=== PATIENT | male | born 1955 | race Caucasian/White ===

== ENCOUNTER 2018-06-08 08:08 | Day surgery (SDC) | payer OTHER ==
[2018-06-04 15:54] VITALS: BMI 26.6
[~2018-06-08 08:08] MED LIST: LACTATED RINGERS 1,000 ML IV SCH; LIDOCAINE 1% 20 ML VIAL (10MG/ML) FOR IV START INTRADERMA PRN
[2018-06-08 09:19] VITALS: RESP 16; TEMP 97
[2018-06-08] MEDS ORDERED: PROPOFOL 10 MG/ML 20 ML VIAL IV ONE (09:42)
[2018-06-08] MEDS ORDERED: LIDOCAINE 1% INJ 10MG/ML (20 ML MDV) ONE (09:42)
--- NOTE | 2018-06-08 10:20 | P.PCN ---
Date of Procedure: 06/08/18 Procedure(s) Performed: Procedure: Total colonoscopy. Preoperative diagnosis: Screening for neoplasia. Postoperative diagnosis: Exam within normal limits. Preparation: HalfLytely prep. Sedation: Was provided by anesthesia. Brief clinical history: The patient is a 62-year-old male who is scheduled for this evaluation for screening for neoplasia because of history of polyps and age as a risk factor. His last exam was in 2011. The patient has no abdominal complaints, bleeding or anemia. Procedure: With the patient on his left lateral decubitus position and after informed consent and adequate sedation, the perianal area was inspected and it did not show any fissures or fistulas. There were no masses felt on digital rectal examination. The Olympus CFQ 160L video colonoscope was then inserted in the rectum in the usual fashion and advanced to the cecum. The mucosa appeared healthy. No polyps or tumors were seen or any obvious diverticular disease or other pathology. I retroflexed the endoscope in the rectum before the endoscope was withdrawn. The patient tolerated the procedure well. Plan: The patient was reassured. He will follow up with you as planned and with his history of polyps, I recommended repeat exam in 5 years.
[2018-06-08 10:29] VITALS: BP 110/70; PULSE 68
== END 2018-06-08 11:01 | disposition home or self-care (01) ==
LOC: ORWHC2ENDO 08:08
DX: Z12.11 Encounter for screening for malignant neoplasm of colon (principal); Z87.19 Personal history of other diseases of the digestive system
CPT/HCPCS: J2001; J2704; G0121

== ENCOUNTER → 2018-08-19 | Outpatient (CLI) | payer OTHER ==
[2018-08-19 09:13] LABS: Basophils # (A) 0.1 k/uL (0-0.2); Basophils % (A) 1 %; Eosinophils # (A) 0.3 k/uL (0-0.7); Eosinophils % (A) 6 %; HCT 47.4 % (39.0-53.0); Lymphocytes # (A) 1.1 k/uL (1.0-4.8); Lymphocytes % (A) 23 %; MCH 29.5 pg (25.0-35.0); MCHC 33.8 g/dL (31.0-37.0); MCV 87.4 fL (80.0-100.0); Mean Platelet Volume 6.3; Monocytes # (A) 0.3 k/uL (0-1.0); Monocytes % (A) 6 %; Neutrophils # (A) 2.8 k/uL (1.3-7.7); Neutrophils % (A) 62 %; Platelet Count 172 k/uL (150-450); RBC 5.43 m/uL (4.30-5.90); RDW 12.7 % (11.5-15.5); WBC 4.6 k/uL (3.8-10.6)
[2018-08-19 16:29] LABS: Albumin 4.3 g/dL (3.80-4.90); Albumin/Globulin Ratio 2.26 (1.20-2.10); Anion Gap 7.4 mmol/L (4.00-12.00); Carbon Dioxide 25.6 mmol/L (21.6-31.8); Globulin 1.9 g/dL (1.6-3.3); LDL Cholesterol,Calculated 107.4 mg/dL (0.0-131.0); Total Bilirubin 0.4 mg/dL (0.2-1.2); Total Protein 6.2 g/dL (6.2-8.2); VLDL Calculation 29.6 mg/dL (5.00-40.00)
== END ==
LOC: LABWHC1 08:48
PROVIDERS: ATTEND Internal Medicine Critical Care Medicine
DX: Z00.00 Encounter for general adult medical examination without abnormal findings (principal)
CPT/HCPCS: 36415; 80053; 80061; 84153; 84439; 84443; 85025

== ENCOUNTER → 2021-06-30 | Outpatient (CLI) | payer MEDICARE ==
[2021-06-30 09:20] LABS: Appearance,Urine Clear (Clear); Bilirubin,Urine Negative (Negative); Blood,Urine Negative (Negative); Color,Urine Yellow; Glucose,Urine (UA) Negative (Negative); Ketones,Urine Negative (Negative); Leukocyte Esterase,Urine Negative (Negative); Nitrite,Urine Negative (Negative); PH, Urine 6.5 (5.0-8.0); Protein,Urine Negative (Negative); Specific Gravity,Urine 1.017 (1.001-1.035); Urobilinogen,Urine <2.0 mg/dL (<2.0)
[2021-06-30 11:47] LABS: Basophils # (A) 0.05 X 10*3/uL (0.00-0.10); Basophils % (A) 0.7 %; Eosinophils # (A) 0.25 X 10*3/uL (0.04-0.35); Eosinophils % (A) 3.4 %; HCT 48.8 % (39.6-50.0); HGB 16.3 g/dL (13.0-17.0); Lymphocytes # (A) 1.25 X 10*3/uL (0.90-5.00); Lymphocytes % (A) 16.9 %; MCH 29.5 pg (27.0-32.0); MCHC 33.4 g/dL (32.0-37.0); MCV 88.2 fL (80.0-97.0); Monocytes # (A) 0.61 X 10*3/uL (0.20-1.00); Monocytes % (A) 8.3 %; Neutrophils # (A) 5.21 X 10*3/uL (1.80-7.70); Neutrophils % (A) 70.6 %; Platelet Count 201 X 10*3/uL (140-440); RBC 5.53 X 10*6/uL (4.40-5.60); RDW 12.8 % (11.5-14.5); WBC 7.38 X 10*3/uL (4.50-10.00)
[2021-06-30 13:34] LABS: African American GFR (CKD) 73.1 (60.0-200.0); Albumin 4.6 g/dL (3.8-4.9); Albumin/Globulin Ratio 1.92 (1.60-3.17); Anion Gap 12.3 mmol/L (4.00-12.00); BUN/Creat Ratio 11.33 Ratio (12.00-20.00); Blood Urea Nitrogen 13.6 mg/dL (9.0-27.0); Calcium 9.4 mg/dL (8.7-10.3); Carbon Dioxide 24.7 mmol/L (21.6-31.8); Chol/HDL Ratio 3.89 Ratio; Globulin 2.4 g/dL (1.6-3.3); HDL Cholesterol 50.7 mg/dL (40.00-60.00); LDL Cholesterol,Calculated 121.9 mg/dL (0.0-131.0); Non-African American GFR(CKD) 63.1 (60.0-200.0); Potassium 4.8 mmol/L (3.5-5.5); T4, Free (Free Thyroxine) 1.01 ng/dL (0.800-1.800); Total Bilirubin 0.5 mg/dL (0.30-1.20); VLDL Calculation 24.4 mg/dL (5.00-40.00)
== END | disposition home or self-care (01) ==
LOC: LABWHC1 08:32
PROVIDERS: ATTEND Internal Medicine Critical Care Medicine
DX: Z00.00 Encounter for general adult medical examination without abnormal findings (principal)
CPT/HCPCS: 36415; 80053; 80061; 81003; 84439; 84443; 85025

== ENCOUNTER → 2022-04-06 | Outpatient (CLI) | payer MEDICARE | END | disposition home or self-care (01) | LOC: LABWHC1 08:05 | PROVIDERS: ATTEND Internal Medicine Critical Care Medicine | DX: I10 Essential (primary) hypertension (principal) | CPT/HCPCS: 36415; 83721 ==

== ENCOUNTER → 2022-05-03 | Outpatient (CLI) | payer MEDICARE ==
--- NOTE | 2022-05-03 08:14 | US ---
EXAMINATION TYPE: US abdomen comp/pelvis limited DATE OF EXAM: 05/03/2022 COMPARISON: NONE CLINICAL HISTORY: K40.90 INGUINAL HERNIA. Right groin pain EXAM MEASUREMENTS: Liver Length: 18.6 cm Gallbladder Wall: 0.1 cm CBD: 0.5 cm Spleen: 11.1 cm Right Kidney: 10.7 x 5.4 x 4.4 cm Left Kidney: 11.8 x 5.1 x 4.8 cm Pancreas: Obscured by bowel gas Liver: Heterogeneous, cysts within left lobe- largest= 2.2 x 1.3 x 2.2 cm Gallbladder: wnl CBD: wnl Spleen: wnl Right Kidney: wnl Left Kidney: Multiple parapelvic cysts, largest= 3.1 x 1.3 x 2.2 cm Upper IVC: wnl Abd Aorta: Proximal and mid portions obscured by overlying bowel gas/ distal portion appeared wnl Bladder: Small bladder diverticula visualized Bilateral Jets Seen Yes Please note Right groin scanned in area of pt's pain for possible inguinal hernia- multiple images taken with valsalva maneuver- no ultrasound evidence of inguinal hernia IMPRESSION: 1. Hepatic heterogeneity may reflect underlying hepatic steatosis. 2. Hepatic cyst as noted above. 3. Multiple parapelvic cysts noted.
== END | disposition home or self-care (01) ==
LOC: RADUSWWP 07:02
PROVIDERS: ATTEND Family Medicine
DX: K76.89 Other specified diseases of liver (principal); R19.07 Generalized intra-abdominal and pelvic swelling, mass and lump
CPT/HCPCS: 76700; 76857

== ENCOUNTER → 2022-08-24 | Outpatient (CLI) | payer MEDICARE ==
[2022-08-24 17:19] LABS: Basophils # (A) 0.07 X 10*3/uL (0.00-0.10); Basophils % (A) 1.2 %; Eosinophils % (A) 5.1 %; HCT 42.2 % (39.6-50.0); HGB 14.9 g/dL (13.0-17.0); Immature Grans, Automated 0.3 %; Lymphocytes # (A) 1.38 X 10*3/uL (0.90-5.00); Lymphocytes % (A) 23.3 %; MCH 30.5 pg (27.0-32.0); MCHC 35.3 g/dL (32.0-37.0); MCV 86.3 fL (80.0-97.0); Mean Platelet Volume 9.8 fL (9.5-12.2); Monocytes # (A) 0.45 X 10*3/uL (0.20-1.00); Monocytes % (A) 7.6 %; NRBC Per 100 WBC 0 /100 WBCS (0.0-0.0); Neutrophils # (A) 3.71 X 10*3/uL (1.80-7.70); Neutrophils % (A) 62.5 %; Platelet Count 207 X 10*3/uL (140-440); RBC 4.89 X 10*6/uL (4.40-5.60); RDW 12.4 % (11.5-14.5); WBC 5.93 X 10*3/uL (4.50-10.00)
== END | disposition home or self-care (01) ==
LOC: LABPAT 08:57
PROVIDERS: ATTEND Surgery
DX: Z01.812 Encounter for preprocedural laboratory examination (principal); K40.90 Unilateral inguinal hernia, without obstruction or gangrene, not specified as recurrent
CPT/HCPCS: 85025; 93005

== ENCOUNTER 2022-08-30 08:40 | Day surgery (SDC) | payer MEDICARE, OTHER ==
[2022-08-27 11:30] VITALS: BMI 26.6
--- NOTE | 2022-08-30 07:35 | P.GSHP ---
History of Present Illness H&P Date: 08/30/22 Chief Complaint: Right inguinal hernia 66-year-old male here today for repair right inguinal hernia. Patient with complaints of bulging right groin with mild pain for the last 6 months or so. Increasing in size. No history of prior hernias. 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 Varicose veins, wears compression stockings. History of Any Multi-Drug Resistant Organisms: None Reported Additional Past Surgical History / Comment(s): Brain surgery to remove meningioma, colonoscopies with poylps removed X1. Past Anesthesia/Blood Transfusion Reactions: No Reported Reaction, Motion Sickness Past Psychological History: No Psychological Hx Reported Smoking Status: Former smoker Past Alcohol Use History: Occasional Additional Past Alcohol Use History / Comment(s): Smoked less than 1ppd in his 20's for approximately 10 yrs. Past Drug Use History: None Reported - Past Family History Father Family Medical History: Cancer Sister(s) Family Medical History: Cancer Additional Family Medical History / Comment(s): Breast cancer. Medications and Allergies Home Medications Medication Instructions Recorded Confirmed Type Lisinopril-Hctz 20-12.5 mg 1 tab PO QAM 06/04/18 08/27/22 History [Zestoretic 20-12.5] Magnesium (Unknown Dose) 1 tab PO HS 08/27/22 08/27/22 History Allergies Allergy/AdvReac Type Severity Reaction Status Date / Time No Known Allergies Allergy Verified 08/27/22 11:16 Surgical - Exam Physical exam: General: Well-developed, well-nourished HEENT: Normocephalic, sclerae nonicteric Abdomen: Nontender, nondistended, reducible right inguinal hernia Extremities: No edema Neuro: Alert and oriented Assessment and Plan (1) Right inguinal hernia Narrative/Plan: 66-year-old male with right inguinal hernia. We'll proceed with lap scopic da Brian assisted repair right inguinal hernia with mesh, possible open, possible bilateral. Risks of bleeding, infection, recurrence, bladder and bowel injury, numbness, nerve injury, conversion to an open procedure were discussed with the patient. The patient understands and wishes to proceed. Status: Acute Code(s): K40.90 - UNIL INGUINAL HERNIA, W/O OBST OR GANGR, NOT SPCF RECUR SNOMED Code(s): 811206375
[~2022-08-30 08:40] MED LIST changes: +ACETAMINOPHEN TAB 500 MG TAB PO PRN; +DEXAMETHASONE SOD PHOSPHATE 4 MG/ML 1 ML VIAL IV ONE; +HEPARIN SODIUM,PORCINE/PF 5,000 UNIT/0.5 ML SYRINGE SQ PRN; +HYDROmorphone 0.5 MG/0.5 ML SYRINGE IVP PRN; +LIDOCAINE 1% (10MG/ML) FOR IV START INTRADERMA PRN; -LIDOCAINE 1% 20 ML VIAL (10MG/ML) FOR IV START INTRADERMA PRN; +MIDAZOLAM 2 MG/2 ML VIAL IV PRN; +ONDANSETRON 4 MG/2 ML VIAL IVP ONE
[2022-08-30 08:59] VITALS: TEMP 97
[2022-08-30 09:11] LABS: Glucose,Whole Blood 108 mg/dL (70-110)
[2022-08-30] MEDS ORDERED: TAMSULOSIN 0.4 MG CAP.ER.24H PO ONE (09:14)
[2022-08-30] MEDS ORDERED: fentaNYL (PF) 50 MCG/ML 2 ML AMP ONE (09:19)
[2022-08-30] MEDS ORDERED: MIDAZOLAM 2 MG/2 ML VIAL ONE (09:19)
[2022-08-30] MEDS ORDERED: GLYCOPYRROLATE 0.2 MG/ML 2 ML VIAL ONE (09:19)
[2022-08-30] MEDS ORDERED: KETOROLAC 15 MG/ML 1 ML VIAL ONE (09:19)
[2022-08-30] MEDS ORDERED: NEOSTIGMINE 1 MG/ML 10 ML VIAL ONE (09:19)
[2022-08-30] MEDS ORDERED: SUCCINYLCHOLINE CHLORIDE 200 MG/10 ML VIAL IV ONE (09:19)
[2022-08-30] MEDS ORDERED: ROCURONIUM 10 MG/ML (5 ML VIAL) IV ONE (09:19)
[2022-08-30] MEDS ORDERED: PROPOFOL 10 MG/ML 20 ML VIAL IV ONE (09:19)
[2022-08-30] MEDS ORDERED: LIDOCAINE 2% INJ 20 MG/ML (2 ML VIAL) ONE (09:19)
[2022-08-30] MEDS ORDERED: HYDROmorphone (PF) 1 MG/ML ONE (09:19)
[2022-08-30] MEDS ORDERED: BUPIVACAIN-EPI 0.25%-1:200,000 30 ML VIAL SQ ONE (09:46)
--- NOTE | 2022-08-30 10:56 | P.OP ---
Date of Procedure: 08/30/22 Procedure(s) Performed: PREOPERATIVE DIAGNOSIS: Right inguinal hernia POSTOPERATIVE DIAGNOSIS: Right direct inguinal hernia PROCEDURE: Laparoscopic repair moderate size right direct inguinal hernia SURGEON: Dr. Turk ANESTHESIA: General OPERATIVE PROCEDURE DETAILS: Patient was placed in the operating table in the supine position. The patient was placed under general anesthesia. The abdomen was prepped and draped in usual sterile fashion. A small curvilinear supraumbilical incision was made. The fascia was retracted anteriorly with Ryan forceps. The Veress needle was inserted. The saline drop test was normal. Insufflation took place to 15 mmHg. An 8 mm trocar was placed into the peritoneal cavity. 2 additional 8 mm trochars were placed in the right upper quadrant and left upper quadrant under visualization. The robotic arms were then brought in and docked into place. The fenestrated bipolar was used in the left arm and the laparoscopic shaniqua was utilized in the right arm. A 30 8 mm scope was used in the up position. The peritoneal cavity was inspected. The patient had an obvious moderate-sized direct hernia on the right. No hernia was seen on the left. The peritoneum was incised in a horizontal fashion cephalad to the internal inguinal ring. Following that careful dissection of the preperitoneal space took place. This took place using both electrocautery, sharp dissection but primarily blunt dissection. Visualization of the pubic tubercle and Chivo's ligament took place medially. Full dissection took place laterally as well. The hernia sac was fully dissected. Once we had adequate space the [id number] Progrip mesh was advanced into the preperitoneal space and flattened out appropriately to cover all potential hernia sites. A 30 absorbable the lock suture was used to secure the mesh to the Chivo's ligament extending medially and then superiorly. The peritoneal defect was then closed using a absorbable 2-0 VLok suture. The hernia sac was incorporated into the peritoneal closure to help prevent future recurrence. The pneumoperitoneum was then evacuated. The skin of all 3 sites was closed using a 4-0 Monocryl stitch. Skin glue was then applied. TYPE OF MESH USED: Prograf 15 x 10 cm LOCATION OF MESH: Preperitoneal FIXATION: 30 absorbable the lock PREOPERATIVE DISCUSSION ON SMOKING CESSASTION: Yes PREOPERATIVE DISCUSSION ON MORBID OBESITY: Yes PREOPERATIVE DISCUSSION ON APPROPRIATE USE OF NARCOTIC USE: Yes PREOPERATIVE EDUCATION: Multi Modal, Smoking Cessation and Weight Loss with BMI over 35. DISPOSITION: Stable to recovery room
[2022-08-30] MEDS ORDERED: LACTATED RINGERS 1,000 ML IV ONE ×2 (12:00→13:30)
[2022-08-30] MEDS ORDERED: ACETAMINOPHEN TAB 325 MG TAB PO SCH (12:00)
[2022-08-30] MEDS ORDERED: IBUPROFEN 600 MG TAB PO SCH (14:00)
[2022-08-30 16:44] VITALS: BP 158/70; PULSE 72; RESP 16
== END 2022-08-30 16:21 | disposition home or self-care (01) ==
LOC: OR 08:40
PROVIDERS: ATTEND Surgery
DX: K40.90 Unilateral inguinal hernia, without obstruction or gangrene, not specified as recurrent (principal); I10 Essential (primary) hypertension; G40.909 Epilepsy, unspecified, not intractable, without status epilepticus; Z87.891 Personal history of nicotine dependence; Z80.3 Family history of malignant neoplasm of breast; Z79.899 Other long term (current) drug therapy
CPT/HCPCS: 49650; 86900; 86901; 86850; C1781; J2250; J0330; J1100; J2710; J0690; J2405; J3010; J1170; J1885; J2704; J1644; J2001

== ENCOUNTER → 2023-06-21 | Outpatient (CLI) | payer MEDICARE ==
[2023-06-21 13:50] LABS: Chol/HDL Ratio 3.04 Ratio; LDL Cholesterol,Calculated 79.4 mg/dL (0.0-131.0); Prostate Specific Antigen 5.39 ng/mL (0.000-4.500)
== END | disposition home or self-care (01) ==
LOC: LABWHC1 08:23
PROVIDERS: ATTEND Internal Medicine Critical Care Medicine
DX: Z00.00 Encounter for general adult medical examination without abnormal findings (principal)
CPT/HCPCS: 36415; 80061; 84153

== ENCOUNTER → 2024-11-05 | Outpatient (CLI) | payer MEDICARE ==
[2024-11-05 10:44] LABS: Basophils # (A) 0.04 X 10*3/uL (0.00-0.10); Basophils % (A) 0.7 %; Eosinophils # (A) 0.35 X 10*3/uL (0.04-0.35); HCT 44.2 % (39.6-50.0); HGB 15.6 g/dL (13.0-17.0); Lymphocytes # (A) 1.07 X 10*3/uL (0.90-5.00); Lymphocytes % (A) 18.4 %; MCH 30.6 pg (27.0-32.0); MCHC 35.3 g/dL (32.0-37.0); MCV 86.7 FL (80.0-97.0); Mean Platelet Volume 10.2 FL (9.5-12.2); Monocytes # (A) 0.45 X 10*3/uL (0.20-1.00); Monocytes % (A) 7.7 %; NRBC Per 100 WBC 0 X 10*3/uL (0.00-0.01); Neutrophils # (A) 3.89 X 10*3/uL (1.80-7.70); Neutrophils % (A) 66.9 %; Platelet Count 177 X 10*3/uL (140-440); RDW 13.2 % (11.5-14.5); WBC 5.82 X 10*3/uL (4.50-10.00)
[2024-11-05 11:07] LABS: ALT 35 U/L (10-49); AST 26 U/L (14-35); Albumin 4.1 g/dL (3.8-4.9); Albumin/Globulin Ratio 1.86 Ratio (1.60-3.17); Alkaline Phosphatase 101 U/L (41-126); Blood Urea Nitrogen 18.6 mg/dL (9.0-27.0); Carbon Dioxide 22.9 mmol/L (21.6-31.8); Chloride 107 mmol/L (96-109); Globulin 2.2 g/dL (1.6-3.3); Glucose 125 mg/dL (70-110); Potassium 4.1 mmol/L (3.5-5.5); Prostate Specific Antigen 2.98 ng/mL (0.000-4.500); Sodium 142 mmol/L (135-145); T4, Free (Free Thyroxine) 0.93 ng/dL (0.80-1.80); Total Bilirubin 0.3 mg/dL (0.3-1.2); Total Protein 6.3 g/dL (6.2-8.2)
[2024-11-05 20:36] LABS: Alternaria alternata IgE <0.10 kU/L; Aspergillus fumagatus IgE <0.10 kU/L; Birch IgE <0.10 kU/L; Cat Epith & Dander IgE <0.10 kU/L; Cladosporian herbarum IgE <0.10 kU/L; Cockroach IgE <0.10 kU/L; Dermato. farinae IgE <0.10 kU/L; Dog Dander IgE <0.10 kU/L; Elm IgE <0.10 kU/L; Maple (Box Elder) IgE <0.10 kU/L; Oak IgE <0.10 kU/L; Ragweed,Common IgE <0.10 kU/L; Red Top (Bentgrass) IgE <0.10 kU/L
== END | disposition home or self-care (01) ==
LOC: LABWHC1 07:22
PROVIDERS: ATTEND Internal Medicine Critical Care Medicine
DX: Z00.00 Encounter for general adult medical examination without abnormal findings (principal); J30.9 Allergic rhinitis, unspecified; N40.0 Benign prostatic hyperplasia without lower urinary tract symptoms
CPT/HCPCS: 36415; 80053; 82785; 83036; 84153; 84439; 84443; 85025; 86003